=== PATIENT | female | born 1995 ===

== ENCOUNTER 2017-06-19 14:48 | Emergency (ER) | payer SELFPAY ==
[2017-06-19 14:54] VITALS: BP 130/85; PULSE 69; RESP 16; TEMP 99.1; O2SAT 100
[2017-06-19] MEDS ORDERED: TETANUS/DIPHTHERIA TOXOID ADULT 0.5 ML VIAL IM ONE (16:30)
[2017-06-19] MEDS ORDERED: LIDOCAINE 1%/EPINEPHrine 1:100,000 SOLN 20 ML VIAL INFIL ONE (16:30)
--- NOTE | 2017-06-19 16:31 | PD ---
HPI Chief Complaint: Facial Pain or Swelling Time Seen by Provider: 16:17 Travel History International Travel<30 days: No Contact w/Intl Traveler<30days: No Traveled to known affect area: No History of Present Illness HPI Patient comes emergency for evaluation after getting hit in the face by a softball. Patient states she went to get the ball as it was on the ground when it took a bounce and hit her in the face causing swelling to her left upper lip laceration to her and her intraoral mucosa. Patient reports that she still managed to make the play and played another inning prior to coming to the emergency department. Patient reports applying ice seem to help some. Denies anything making it worse. Patient uncertain of her last tetanus shot. Denies any headache, nasal trauma, epistaxis, dental trauma, change in vision, difficulty breathing, , being on any blood thinners, neck pain, chest pain, shortness breath, or other known injuries. Describes pain as a throbbing/ burning pain without radiation PFSH Past Medical History Medical History: Denies Significant Hx ?: Not Social History Alcohol Use: No Tobacco Use: No Substance Use: No Allergies-Medications (Allergen,Severity, Reaction): Coded Allergies: No Known Allergies (Verified Allergy, Unknown, 06/19/17) Reported Meds & Prescriptions Reported Meds & Active Scripts Active No Active Prescriptions or Reported Medications Review of Systems Except as stated in HPI: all other systems reviewed are Neg Physical Exam Narrative GENERAL: Well-developed, well nourished, in no acute distress, and non-ill appearing. SKIN: Focused skin assessment warm and dry. Patient has soft tissue swelling of the left upper lip with a small intraoral mucosal lesion left upper lip. No foreign body or crepitus noted. HEAD: Atraumatic. Normocephalic. EYES: Pupils equal and round. EOMI. No scleral icterus. No injection or drainage. ENT: No nasal bleeding or discharge. Mucous membranes pink and moist. No septal hematoma. No flattening of the cheeks. No periorbital ecchymosis. No dental trauma appreciated. NECK: Trachea midline. Supple. No nuclear rigidity. RESPIRATORY: No accessory muscle use. No respiratory distress. MUSCULOSKELETAL: No obvious deformities. No clubbing. No cyanosis. No edema. Full range of motion. NEUROLOGICAL: Awake and alert. No obvious cranial nerve deficits. Motor grossly within normal limits. Normal speech. PSYCHIATRIC: Appropriate mood and affect; insight and judgment normal. Data Data Last Documented VS Vital Signs Date Time Temp Pulse Resp B/P (MAP) Pulse Ox O2 Delivery O2 Flow Rate FiO2 06/19/17 14:54 99.1 69 16 130/85 (100) 100 Orders Orders Tetanus/Diphtheria Tox Adult (Tetanus/Di (06/19/17 16:30) Lidocai-Epi 1%-1:100,000 Inj (Xylocaine- (06/19/17 16:30) Lidocai-Epi 1%-1:100,000 Inj (Xylocaine- (06/19/17 16:40) Ed Discharge Order (06/19/17 17:30) [facility] Medical Decision Making Medical Screen Exam Complete: Yes Emergency Medical Condition: Yes Differential Diagnosis Fracture, contusion, hematoma, laceration, abrasion Narrative Course The patient suffered intraoral laceration. The laceration appeared clean and approximated well. There was no evidence to suggest foreign bodies. Visual and tactile exams were unremarkable. There was no evidence of neurovascular injury as well. The patient was irrigated with copious sterile normal saline and primary repair was performed. Please see procedure note. The patient was given signs and symptom warnings for infection, such as increasing pain, redness, swelling, associated heat, pus or fever. The patient was given instructions for timely follow up. The patient agreed with plan of care. There is no significant jaw pain or tenderness. There is no malocclusion noted subjectively or objectively. There is no bruising under the tongue. There is no significant swelling, tenderness, bruising or deformity of the face to suggest fractures of face or nose. There is no nasal discharge or bleeding and no septal hematoma. There are no visual problems or significant bruising under eyes or midface. There is no evidence to suggest entrapment and there is no facial nerve palsy. There is no flattening of the cheek or altered sensation underneath the eye. The facial bones are stable and nonmobile. The airway is intact. Findings were discussed with the patient. The patient was instructed on pain medication, ice packs and elevation of head. The patient agreed with plan of care and management and will follow up with PCP. Patient in no obvious distress upon re-evaluation. Any questions/concerns in reference to patient diagnosis/condition discussed and clarified prior to patient's discharge. Reinforced sheer importance of close follow up with patient 's primary physician or primary care clinic. Instructed patient to return to ED immediately, if symptoms return/worsen. Patient showed understanding of above instructions. Further instructions and recommendations were detailed in discharge paperwork. Patient ambulated without difficulty out of ED at discharge. Procedures Procedure Narrative LACERATION REPAIR LOCATION: Upper inner oral mucosa behind lip LENGTH: Approximately 1.5 cm NUMBER OF STITCHES/BETTIE: 2 simple mattresses buried REPAIR: Verbal consent was obtained. The area of the laceration was cleaned and prepped. The laceration was infiltrated with lidocaine with epi. The wound was copiously irrigated and explored without evidence of foreign body, bony involvement, ligament injury, tendon injury, or neurovascular injury. No involvement of the vermilion border. The wound was closed using 5-0 fast absorbing gut. This was a single layer repair. There were no complications. Patient tolerated the procedure well. Diagnosis Primary Impression: Laceration of oral cavity Qualified Codes: S01.512A - Laceration without foreign body of oral cavity, initial encounter Additional Impression: Contusion, lip Qualified Codes: S00.531A - Contusion of lip, initial encounter Referrals: [facility] Patient Instructions: Care For Your Absorbable Stitches (ED), Facial Contusion (ED), Facial Laceration (ED), General Instructions Additional Instructions: Follow-up with your primary care physician in 3-5 days for reevaluation. Eat soft foods for two to three days. Rinse the mouth with water after eating. Avoid spicy or salty foods until the wound is healed. Avoid the use of straws (negative pressure may increase ecchymosis or bleeding at the wound site). Return to the emergency department if symptoms get worse. Scripts No Active Prescriptions or Reported Meds Disposition: 01 DISCHARGE HOME Condition: Stable Jeremiah Glover Jun 19, 2017 16:31
[2017-06-19] MEDS ORDERED: LIDOCAINE 1%/EPINEPHrine 1:100,000 SOLN 30 ML VIAL ONE (16:40)
== END 2017-06-19 17:38 | disposition home or self-care (01) ==
LOC: NEPK 14:48
DX: S01.512A Laceration without foreign body of oral cavity, initial encounter (principal); S00.531A Contusion of lip, initial encounter; Z23 Encounter for immunization; W21.07XA Struck by softball, initial encounter; Y93.64 Activity, baseball
CPT/HCPCS: 12011; 90471; 90714